=== PATIENT | male | born 1980 | race Caucasian/White ===

== ENCOUNTER 2023-08-19 11:10 | Day surgery (SDC) | payer MEDICAID ==
[2023-08-19] MEDS ORDERED: Lactated Ringers 1,000 ML IV SCH (11:30)
[2023-08-19] MEDS ORDERED: fentaNYL 50 MCG/ML SDV ONE (11:49)
[2023-08-19] MEDS ORDERED: Midazolam 1 MG/ML 2 ML SDV ONE (11:49)
[2023-08-19] MEDS ORDERED: Propofol 200 MG/20 ML SDV ONE (11:49)
== END 2023-08-19 14:07 | disposition home or self-care (01) ==
LOC: JP.SDS 11:10
PROVIDERS: ATTEND Student in an Organized Health Care Education/Training Program
DX: K29.50 Unspecified chronic gastritis without bleeding (principal); K21.9 Gastro-esophageal reflux disease without esophagitis; E66.9 Obesity, unspecified; Z68.37 Body mass index [BMI] 37.0-37.9, adult
CPT/HCPCS: 43239; J2250; J2704; J3010; J7120; 88305; 88342

== ENCOUNTER 2023-10-25 06:08 | Day surgery (SDC) | payer MEDICAID ==
[2023-10-25] MEDS: Acetaminophen 500 MG Tab PO ONE (06:20)
[2023-10-25] MEDS: Indocyanine Green 25 MG SDV IV ONE (06:37)
[2023-10-25] MEDS: Sodium Chloride 0.9% 1,000 ML IV SCH (06:38)
[2023-10-25] MEDS ORDERED: fentaNYL 250 MCG/5 ML SDV ONE ×2 (07:23→08:09)
[2023-10-25] MEDS ORDERED: Rocuronium 50 MG/5 ML Vial ONE ×2 (07:24→08:42)
[2023-10-25] MEDS ORDERED: Propofol 200 MG/20 ML SDV ONE (07:24)
[2023-10-25] MEDS ORDERED: Neostigmine Methylsulfate 10 MG/10 ML MDV ONE (07:24)
[2023-10-25] MEDS ORDERED: Glycopyrrolate 0.2 MG/ML 5 ML MDV ONE (07:24)
[2023-10-25] MEDS ORDERED: Dexamethasone 4 MG/ML SDV ONE (07:24)
[2023-10-25] MEDS ORDERED: Succinylcholine 200 MG/10 ML MDV ONE (07:24)
[2023-10-25] MEDS ORDERED: Ondansetron 4 MG/2 ML SDV ONE (07:24)
[2023-10-25] MEDS: cefTRIAXone 2 GM in Sodium Chloride 0.9% 50 ML IV ONE (07:30)
[2023-10-25] MEDS: metroNIDAZOLE/Normal Saline 500 MG in Premix Bag 1 BAG IV ONE (07:58)
[2023-10-25] MEDS: Bupivacaine 0.5%/EPINEPHrine 1:200,000 50 ML MDV ONE (08:26)
[2023-10-25] MEDS ORDERED: Labetalol 20 MG/4 ML Syringe ONE (08:29)
[2023-10-25] MEDS: Acetaminophen/HYDROcodone 325-5 MG Tab PO PRN (11:03)
== END 2023-10-25 12:02 | disposition home or self-care (01) ==
LOC: JP.SDS 06:08
PROVIDERS: ATTEND Student in an Organized Health Care Education/Training Program
DX: K81.1 Chronic cholecystitis (principal); K82.8 Other specified diseases of gallbladder; K21.9 Gastro-esophageal reflux disease without esophagitis; I10 Essential (primary) hypertension; F41.9 Anxiety disorder, unspecified; G43.909 Migraine, unspecified, not intractable, without status migrainosus; E66.01 Morbid (severe) obesity due to excess calories; Z68.35 Body mass index [BMI] 35.0-35.9, adult; Z79.899 Other long term (current) drug therapy
CPT/HCPCS: 47562; 88304; A9270; J0330; J0696; J1100; J1836; J1920; J2405; J2704; J2710; J3010; J3490; J7030